=== PATIENT | male | born 1950 | race Caucasian/White ===

== ENCOUNTER 2016-10-15 06:46 | Day surgery (SDC) | payer BC ==
[2016-10-12 09:28] LABS: BASOPHILS 0.4 %; BASOPHILS ABSOLUTE 0.03 10/3/uL (0.0-0.16); EOSINOPHILS 2.7 %; EOSINOPHILS ABSOLUTE 0.23 10/3/uL (0.0-0.53); HEMATOCRIT 37.4 % (40.0-51.0); HEMOGLOBIN 12.7 g/dL (13.6-17.8); IMMATURE GRANULOCYTES 0.2 %; IMMATURE GRANULOCYTES ABSOLUTE 0.02 10/3/uL (0.0-0.11); LYMPHOCYTES 39.1 %; LYMPHOCYTES ABSOLUTE 3.31 10/3/uL (0.67-4.30); MANUAL DIFF NO %; MEAN CORPUSCULAR HEMOGLOB 29.5 pg (26.0-34.0); MEAN CORPUSCULAR VOLUME 86.8 fL (80-100); MEAN PLATELET VOLUME 10.2 fL (9.2-13.0); MONOCYTES 6.3 %; MONOCYTES ABSOLUTE 0.53 10/3/uL (0.21-1.20); NEUTROPHILS 51.3 %; NEUTROPHILS ABSOLUTE 4.35 10/3/uL (2.02-8.40); PLATELET COUNT 268 10/3/uL (150-400); RBC DISTRIBUTION WIDTH 12.7 % (12.0-16.0); RED CELL COUNT 4.31 10/6/uL (4.7-6.1); WHITE BLOOD CELLS 8.5 10/3/uL (4.5-10.5)
[2016-10-12 09:45] LABS: ALBUMIN 3.9 G/DL (3.5-5.0); ALKALINE PHOSPHATASE 67 U/L (45-117); BUN (BLOOD UREA NITROGEN) 28 MG/DL (6-23); CALCIUM, SERUM 9.3 MG/DL (8.5-10.4); CHLORIDE, SERUM 108 MMOL/L (96-112); CO2 (CARBON DIOXIDE) 23 MMOL/L (24-34); CREATININE 1.46 MG/DL (0.70-1.30); GFR AFRICAN AMERICAN 58 ML/MIN (>=60); GFR NON AFRICAN AMERICAN 50 ML/MIN (>=60); GLOBULIN 3.8 G/DL (2.5-4.1); GLUCOSE, SERUM 162 MG/DL (60-99); POTASSIUM, SERUM 4.4 MMOL/L (3.5-5.3); SGPT(ALT) 23 U/L (5-65); SODIUM, SERUM 136 MMOL/L (135-148); TOTAL BILIRUBIN 0.2 MG/DL (0-1.2); TOTAL PROTEIN 7.7 G/DL (6.0-8.5)
[2016-10-12 09:47] LABS: SGOT(AST) 23 U/L (5-40)
--- NOTE | ~2016-10-15 | OP ---
Record Of Operation [facility] [address] [place]. [address] NAME: CONNIE PARTIDA : 54 STATUS : [facility]#: [id number] AGE: 66 ADM/REG DATE : 10/15/16 MR#: [id number] REPORT SERV DATE: 10/15/16 DICTATED BY: CHEVY MOSQUEDA III DATE: 10/15/16 REPORT STATUS : Draft TRANSCRIBED BY: MODL DATE: 10/15/16 DATE OF PROCEDURE: 10/15/2016 PREOPERATIVE DIAGNOSIS: Symptomatic bilateral inguinal hernias. POSTOPERATIVE DIAGNOSIS: Symptomatic bilateral inguinal hernias. PROCEDURE: Open bilateral inguinal hernia repair, likely seen a tension-free repair with mesh. SURGEON: Chevy Mosqueda M.D. ANESTHESIA: General with intubation. COMPLICATIONS: None. ESTIMATED BLOOD LOSS: Less than 5 mL. SPECIMENS: None. DRAINS: None. LAP AND SPONGE COUNT: Correct x3. BRIEF HISTORY: This 66-year-old male presented with a large symptomatic bilateral inguinal hernias. It was felt that open bilateral inguinal hernia repair was indicated. This procedure, the risks, benefits, and alternatives, including not limited to the risk for bleeding, infection, pain, swelling, scarring, deformity to either both areas, seroma formation, hematoma formation, nerve injury, chronic paresthesia, pain in the thigh, scrotum, or groin on either or both sides; chronic neuralgia or neuroma, recurrence of either or both hernias, and unforeseen complications including deep venous thrombosis, pulmonary embolus, myocardial infarction, stroke, pneumonia, and , were fully and completely explained to the patient's family prior to surgery. The fact that this was a major operation with risk for major morbidity and mortality was explained. Expected length of recovery was explained. The patient had questions, which were answered. He fully understood the risks and agreed to surgery as planned. DESCRIPTION OF PROCEDURE: After being properly identified and after discussing the risks of surgery with the patient and his family again in the preoperative area, he was taken to the operating room and placed in the supine position on the operating room table. General anesthesia was administered and he was intubated without difficulty. The abdomen and groins and scrotum were prepped and draped sterilely in the usual fashion. After an appropriate "time-out" per JCAHO standards, an oblique incision was made in the left groin from the pubic tubercle medially towards the anterior superior iliac spine laterally. The incision was continued through the subcutaneous tissue. Hemostasis was controlled with cautery. The external oblique fascia was identified. This fascia was opened along the direction of its Record Of Operation [facility] [address] [place]. [address] NAME: CONNIE PARTIDA : 54 STATUS : [facility]#: [id number] AGE: 66 ADM/REG DATE : 10/15/16 MR#: [id number] REPORT SERV DATE: 10/15/16 DICTATED BY: CHEVY MOSQUEDA III DATE: 10/15/16 REPORT STATUS : Draft TRANSCRIBED BY: MISTY DATE: 10/15/16 fibers, so as to open the external inguinal ring. Using sharp dissection, the underlying ilioinguinal and genitofemoral nerves were identified. These were carefully isolated and protected to one side. Using sharp dissection, the spermatic cord and its contents were mobilized from the floor of the canal and a Mathis drain placed beneath it. There was noted to be an extremely large direct hernia protruding through the floor of the canal. The entire floor of the canal was attenuated and involved with the hernia. The spermatic cord was skeletonized. It was noted there was no indirect component to the hernia. It should be noted the patient is extremely obese and it was extremely deep to the level of the hernia. Using sharp dissection, the hernia was dissected free from the surrounding tissues. It was reduced back in the abdominal cavity. The floor of canal was reapproximated with interrupted 2-0 silk sutures which were placed between the shelving edge of the inguinal ligament laterally and the internal oblique and transversalis fascia medially. This resulted in good closure of the defect with minimal tension. A Prolene mesh was then selected and cut to the appropriate size for the floor of the canal. A slit was made in the mesh laterally to incorporate the spermatic cord. The mesh was then secured to the floor of canal with a running 2-0 Prolene suture, which was placed between the edge of the mesh and shelving edge of the inguinal ligament laterally and the edge of the mesh and internal oblique and transversalis fascia medially. The mesh was secured lateral with the cord as well. Upon completion of this, the mesh lay nicely on the floor of canal, it was not twisted or kinked in anyway and it was not under any tension. A small finger could be placed through the internal ring so that the spermatic vessels had not been unduly tightened or narrowed. Hemostasis was assured. The external oblique fascia was closed with a running 2-0 silk suture. The subcutaneous tissue was closed with running 3-0 chromic suture. The skin was closed with running subcuticular 4-0 Monocryl stitch. The incision was injected with 0.5% Marcaine. We then turned our attention to the right groin. A similar mirror-image incision was made in the right groin. The incision was continued through the subcutaneous tissue. Hemostasis was controlled with cautery. The external oblique fascia was identified and opened along the direction of its fibers. Again, the underlying ilioinguinal and genitofemoral nerves were identified. These were carefully isolated and protected to one side. Using sharp dissection, the spermatic cord and its contents were mobilized from the floor of the canal. A Juice drain placed beneath it. There was noted to be a large direct hernia protruding through the floor of canal. Using sharp dissection, this reduced into the abdominal cavity. The fascial defect was repaired as on the opposite side. Again, the spermatic cord was skeletonized. It was noted there was no indirect component to the hernia. The mesh was secured to the floor of the canal as on the opposite side. The incision was closed as on the opposite side. Dressings were applied. Anesthesia was reversed. The patient was taken to the recovery room in stable condition. He tolerated the procedure well. His family was informed of the results of the surgery and the patient will be discharged when stable, comfortable, and able to void and ambulate. His family was advised that he should keep his wounds clean and dry for [address] hours[address] He should not drive for one week after surgery or while using large narcotics that he should resume his usual medications and that he should not perform any heavy lifting for five to six weeks. He was asked to return in two weeks for Record Of Operation [facility] [address] [facility] [place]. [address] NAME: CONNIE PARTIDA : 54 STATUS : [facility]#: [id number] AGE: 66 ADM/REG DATE : 10/15/16 MR#: [id number] REPORT SERV DATE: 10/15/16 DICTATED BY: CHEVY MOSQUEDA III DATE: 10/15/16 REPORT STATUS : Draft TRANSCRIBED BY: MISTY DATE: 10/15/16 followup or sooner if any fever, chills, wound drainage, or other problems prior to that time. He was given a prescription for Percocet 7.5 one t.i.d., #12, as needed for pain, which he was advised not to use while driving. Noah/MISTY Chevy Mosqueda III, M.D. / [id number] CC: Irvin Wang III, MD
--- NOTE | ~2016-10-15 | PREOPHP ---
PreOp History and Physical [facility] [id number] [place]. [address] NAME: CONNIE PARTIDA : 54 STATUS : [facility] PAT#: [id number] AGE: 66 ADM/REG DATE : MR#: [id number] REPORT SERV DATE: 10/15/16 DICTATED BY: CHEVY MOSQUEDA III DATE: 09/28/16 REPORT STATUS : Draft TRANSCRIBED BY: MODJuana DATE: 09/28/16 HISTORY OF PRESENT ILLNESS: This is a 66-year-old male who comes for the operating room for open bilateral inguinal hernia repair. The patient complains of bilateral inguinal pain and swelling. This has been ongoing for four to five years. This has become more symptomatic recently. The patient has bilateral inguinal hernias, which have become progressively symptomatic. He comes to the operating room now for open bilateral inguinal hernia repair. PAST MEDICAL HISTORY: 1. Hypertension. 2. Hyperlipidemia. 3. Type 2 diabetes mellitus. ALLERGIES: NONE. MEDICATIONS: Amlodipine, glimepiride, irbesartan, Januvia, metformin, and triamterene. FAMILY HISTORY: Positive for colon cancer, diabetes, and hypertension. SOCIAL HISTORY: No history of tobacco or alcohol use. REVIEW OF SYSTEMS: The patient's 14-point review of systems is otherwise unremarkable. PHYSICAL EXAMINATION: GENERAL: Obese male, in no acute distress. He is alert and oriented x3. VITAL SIGNS: Blood pressure 169/95, pulse 107, temperature 98.1. HEENT: Unremarkable. Cranial nerves 2 through 12 are normal. LUNGS: Clear. CARDIAC: Normal. ABDOMEN: Soft and nontender. He had bilateral inguinal hernias, which are reducible. The left hernia is larger than the right. EXTREMITIES: Normal. ASSESSMENT: 1. This 66-year-old male with symptomatic bilateral inguinal hernias. 2. Hypertension. 3. Obesity. 4. Type 2 diabetes mellitus. 5. Hyperlipidemia. PLAN: The patient comes to the operating room now for open bilateral inguinal hernia repair. This procedure, the risks, benefits, and alternatives, including not limited to the risk for bleeding; infection; pain; swelling; scarring; deformity to either or both areas; seroma formation; hematoma formation; recurrence of either or both hernias; nerve injury; chronic paresthesia; pain in the thigh, scrotum, or groin on either or both sides; chronic neuralgia PreOp History and Physical [facility] [address] [place]. [address] NAME: CONNIE PARTIDA : 54 STATUS : [facility] PAT#: [id number] AGE: 66 ADM/REG DATE : MR#: [id number] REPORT SERV DATE: 10/15/16 DICTATED BY: CHEVY MOSQUEDA III DATE: 09/28/16 REPORT STATUS : Draft TRANSCRIBED BY: MISTY DATE: 09/28/16 or neuroma; and unforeseen complications including deep venous thrombosis, pulmonary embolus, myocardial infarction, stroke, pneumonia, and have been explained to the patient prior to surgery. The option of nonoperative management has been offered to the patient, but declined. The expected length of recovery has been explained. The patient's questions have been answered. He understands the risks and agrees to the surgery as planned. DENAE/MISTY Chevy Mosqueda III, M.D. / [id number]
[~2016-10-15 06:46] MED LIST: AMARYL4 PO; AVAPRO300 MG PO; GLUCOPHAGE1000 MG PO; JANUVIA100 MG PO; MAXIDE PO; NORV10 PO; VITAMIN B WITH C PO; [UNRECOGNIZED DRUG - OTHER] OPH
== END 2016-10-15 16:14 | disposition home or self-care (01) ==
LOC: SDC 06:46
PROVIDERS: Surgery
PROC: 0YUA0JZ Supplement Bilateral Inguinal Region with Synthetic Substitute, Open Approach (ICD-10-PCS; principal; 2016-10-15 08:30)
DX: K40.20 Bilateral inguinal hernia, without obstruction or gangrene, not specified as recurrent (principal); I10 Essential (primary) hypertension; E78.5 Hyperlipidemia, unspecified; E11.9 Type 2 diabetes mellitus without complications; E66.9 Obesity, unspecified; N40.0 Benign prostatic hyperplasia without lower urinary tract symptoms; G62.9 Polyneuropathy, unspecified
CPT/HCPCS: 71020; 80053; 82962; 85025; 93005; A9270-GY; C1781; J0690; J1170; J2250; J2270; J2405; J2710; J3010